=== PATIENT | male | born 1950 | race Asian ===

== ENCOUNTER 2020-01-05 04:45 | Day surgery (SDC) | payer MEDICARE, OTHER ==
[~2020-01-05] VITALS: Ht 162.6 cm; Wt 70.9 kg
[~2020-01-05 04:45] MED LIST: AMLO-258 PO; CLON0.1T83 PO; CYCLOPENTOLATE HCL 1% 2 ML OPHTHALMIC SOLUTION ONE; DICLOFENAC SODIUM 0.1% 2.5 ML OPHTHALMIC SOLUTION ONE; KETOROLAC TROMETHAMINE 0.5% 5 ML OPHTHALMIC SOLUTION ONE; MOXIFLOXACIN HCL 0.5% 3 ML OPHTHALMIC SOLUTION ONE; PANT-31 PO; PHENYLEPHRINE HCL 2.5% 2 ML OPHTHALMIC SOLUTION ONE; RINGERS SOLUTION,LACTATED 500 ML IV ONE; SUMA100T PO; TETRACAINE HCL/PF 0.5% 4 ML OPHTHALMIC SOLUTION ONE; TROPICAMIDE 1% 2 ML OPHTHALMIC SOLUTION ONE
[2020-01-05] MEDS ORDERED: MIDAZOLAM HCL 2 MG/2 ML VIAL IVP ONE (04:46)
[2020-01-05] MEDS ORDERED: FentaNYL CITRATE-PF 100 MCG/2 ML VIAL IVP ONE (04:46)
[2020-01-05] MEDS ORDERED: TETRACAINE HCL/PF 0.5% 4 ML OPHTHALMIC SOLUTION OD ONE (05:00)
[2020-01-05] MEDS: KETOROLAC TROMETHAMINE 0.5% 5 ML OPHTHALMIC SOLUTION OD SCH ×3 (05:27→05:46)
[2020-01-05] MEDS: MOXIFLOXACIN HCL 0.5% 3 ML OPHTHALMIC SOLUTION OD SCH ×3 (05:27→05:46)
[2020-01-05] MEDS: PHENYLEPHRINE HCL 2.5% 2 ML OPHTHALMIC SOLUTION OD SCH ×3 (05:27→05:46)
[2020-01-05] MEDS: CYCLOPENTOLATE HCL 1% 2 ML OPHTHALMIC SOLUTION OD SCH ×3 (05:27→05:46)
[2020-01-05] MEDS: TROPICAMIDE 1% 2 ML OPHTHALMIC SOLUTION OD SCH ×3 (05:27→05:46)
[2020-01-05] MEDS ORDERED: NEOMYCIN/POLYMYXIN B/DEXAMETH 3.5 GM OPHTHALMIC OINTMENT ONE (05:31)
[2020-01-05] MEDS ORDERED: LIDOCAINE/PF 1% 2 ML VIAL ONE (05:31)
[2020-01-05] MEDS ORDERED: EPINEPHrine 1:1,000 [1 MG/ML] AMP ONE (05:31)
[2020-01-05] MEDS ORDERED: POVIDONE-IODINE 10% 15 ML SOLUTION UD ONE (05:32)
[2020-01-05] MEDS ORDERED: PrednisoLONE ACETATE 1% 5 ML OPHTHALMIC SUSPENSION ONE (06:08)
== END 2020-01-05 08:30 | disposition home or self-care (01) ==
LOC: SURGERY 04:45
PROVIDERS: ATTEND Ophthalmology
DX: H26.8 Other specified cataract (principal); I10 Essential (primary) hypertension; Z20.828 Contact with and (suspected) exposure to other viral communicable diseases; Z79.899 Other long term (current) drug therapy; Z98.890 Other specified postprocedural states; Z90.49 Acquired absence of other specified parts of digestive tract
CPT/HCPCS: 66984; 87635; 93005; J0171; J2250; J3010; J3490; J7120; V2632

== ENCOUNTER 2020-03-08 05:17 | Day surgery (SDC) | payer MEDICARE, OTHER ==
[2020-03-07 11:16] LABS: COVID AG,FIA SOURCE NASOPHARYNGEAL
[~2020-03-08] VITALS: Ht 162.6 cm; Wt 71.8 kg
[~2020-03-08 05:17] MED LIST changes: -DICLOFENAC SODIUM 0.1% 2.5 ML OPHTHALMIC SOLUTION ONE
[2020-03-08] MEDS ORDERED: RINGERS SOLUTION,LACTATED 500 ML IV ONE (05:30)
[2020-03-08] MEDS ORDERED: TETRACAINE HCL/PF 0.5% 4 ML OPHTHALMIC SOLUTION OS ONE (06:00)
[2020-03-08] MEDS: MOXIFLOXACIN HCL 0.5% 3 ML OPHTHALMIC SOLUTION OS SCH ×3 (06:03→06:15)
[2020-03-08] MEDS: TROPICAMIDE 1% 2 ML OPHTHALMIC SOLUTION OS SCH ×3 (06:03→06:15)
[2020-03-08] MEDS: KETOROLAC TROMETHAMINE 0.5% 5 ML OPHTHALMIC SOLUTION OS SCH ×3 (06:03→06:15)
[2020-03-08] MEDS: CYCLOPENTOLATE HCL 1% 2 ML OPHTHALMIC SOLUTION OS SCH ×3 (06:03→06:15)
[2020-03-08] MEDS: PHENYLEPHRINE HCL 2.5% 2 ML OPHTHALMIC SOLUTION OS SCH ×3 (06:04→06:15)
[2020-03-08] MEDS ORDERED: FentaNYL CITRATE-PF 100 MCG/2 ML VIAL IVP ONE (12:00)
[2020-03-08] MEDS ORDERED: MIDAZOLAM HCL 2 MG/2 ML VIAL IVP ONE (12:00)
[2020-03-08] MEDS ORDERED: EPINEPHrine 1:1,000 [1 MG/ML] AMP ONE (16:43)
[2020-03-08] MEDS ORDERED: POVIDONE-IODINE 10% 15 ML SOLUTION UD ONE (16:43)
[2020-03-08] MEDS ORDERED: LIDOCAINE 2%/EPI 1:200,000/PF 10 ML VIAL ONE (16:43)
[2020-03-08] MEDS ORDERED: HYALURONATE SODIUM 12 MG/ML 0.8 ML SYRINGE IO ONE (16:43)
[2020-03-08] MEDS ORDERED: NEOMYCIN/POLYMYXIN B/DEXAMETH 3.5 GM OPHTHALMIC OINTMENT ONE (16:43)
[2020-03-08] MEDS ORDERED: PrednisoLONE ACETATE 1% 5 ML OPHTHALMIC SUSPENSION ONE (16:43)
== END 2020-03-08 08:45 | disposition home or self-care (01) ==
LOC: SURGERY 05:17
PROVIDERS: ATTEND Ophthalmology
DX: H25.12 Age-related nuclear cataract, left eye (principal); I10 Essential (primary) hypertension; Z90.49 Acquired absence of other specified parts of digestive tract; Z98.890 Other specified postprocedural states; Z20.828 Contact with and (suspected) exposure to other viral communicable diseases
CPT/HCPCS: 66984; 87426; C9803; J0171; J2250; J3010; J3490; J7120; V2632